=== PATIENT | male | born 1975 | race Caucasian/White ===

== ENCOUNTER → 2021-02-01 | Outpatient (CLI) | payer BC ==
--- NOTE | 2021-02-01 15:15 | XR ---
Cervical spine HISTORY: Cervical radiculopathy, neck pain Views of the cervical spine Cervical vertebral bodies show preserved height, alignment, and bone mineralization. There is mild sp ondylosis at C5-6 with associated loss of disc height. Prevertebral soft tissues are normal. No signi ficant foraminal encroachment with exception of C4-5 and C5-6 on the left, C5-6 on the right showing mild encroachment. Straightening of the cervical spine could be due to muscle spasm. C7-T1 not well s een. IMPRESSION: Degenerative disc disease.
== END | disposition home or self-care (01) ==
LOC: RADXRYALE 13:14
PROVIDERS: ATTEND Nurse Practitioner
DX: M50.30 Other cervical disc degeneration, unspecified cervical region (principal)
CPT/HCPCS: 72050